=== PATIENT | male | born 1965 | race Hispanic/Latino ===

== ENCOUNTER 2020-11-29 07:48 | Emergency (ER) | payer OTHER ==
[2020-11-29 07:56] VITALS: BP 139/77
--- NOTE | 2020-11-29 08:31 | Emergency Department Report ---
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 Patient states he hurt his knee pop when he was putting on his bunker gear this morning. Patient states that he has been having some trouble with his knee but today the pain has gotten worse after the pop. Patient states is difficult to walk. He states he has been trying to wear knee brace. He has a past medical history of hypertension. He denies any direct blow or fall. MD Complaint: knee injury -: This morning Injury: Knee: Right (Putting on bunker gear heard knee pop) Type of Injury: unknown Place: work Severity scale (0 -10): 8 Improves With: rest Worsens With: weight bearing Associated Symptoms: snap/pop sensation - Related Data Previous Rx's Medication Instructions Recorded Last Taken Type Meloxicam [Mobic] 7.5 mg PO QDAY #30 tablet 11/29/20 Unknown Rx Allergies Allergy/AdvReac Type Severity Reaction Status Date / Time No Known Allergies Allergy Unverified 11/29/20 07:51 ED Review of Systems ROS: Stated complaint: RT KNEE PAIN Other details as noted in HPI Comment: All other systems reviewed and negative ED Past Medical Hx - Past Medical History Hx Hypertension: Yes - Social History Smoking Status: Never Smoker Substance Use Type: None - Medications Home Medications: Home Medications Medication Instructions Recorded Confirmed Last Taken Type Meloxicam [Mobic] 7.5 mg PO QDAY #30 tablet 11/29/20 Unknown Rx ED Physical Exam - General Limitations: No Limitations General appearance: alert, in no apparent distress - Head Head exam: Present: atraumatic, normocephalic - Eye Eye exam: Present: normal appearance - ENT ENT exam: Present: mucous membranes moist - Neck Neck exam: Present: normal inspection, full ROM - Respiratory Respiratory exam: Absent: accessory muscle use - Cardiovascular Cardiovascular Exam: Present: regular rate - Extremities Exam Extremities exam: Present: full ROM. Absent: calf tenderness - Expanded Lower Extremity Exam Right Knee exam: Present: full ROM, tenderness (Medial), full knee extension. Absent: swelling, abrasion, laceration, ecchymosis, deformity, erythema, effusion Lower Leg exam: Present: normal inspection, full ROM. Absent: tenderness, swelling Ankle exam: Present: normal inspection, full ROM. Absent: tenderness, swelling Foot/Toe exam: Present: normal inspection, swelling (trace medial). Absent: tenderness, dislocation, erythema Neuro vascular tendon exam: Present: no vascular compromise - Back Exam Back exam: Present: normal inspection - Neurological Exam Neurological exam: Present: alert, oriented X3 - Psychiatric Psychiatric exam: Present: normal affect, normal mood - Skin Skin exam: Present: warm, dry, intact, normal color. Absent: rash ED Course Vital Signs 11/29/20 07:54 Temperature 98.5 F Pulse Rate 84 Respiratory 18 Rate Blood Pressure 139/77 O2 Sat by Pulse 97 Oximetry ED Lower Extremity MDM - Radiology Data Radiology results: report reviewed [facility] [address] [place] [address] XRay Report Signed Patient: NESHA CLEMENT MR#: [id number] 8 : 1965 Acct:[id number] Age/Sex: 55 / M ADM Date: 11/29/20 Loc: ED Attending Dr: Ordering Physician: YAMIL ELLISON Date of Service: 11/29/20 Procedure(s): XR knee 1-2V RT Accession Number(s): [id number] cc: YAMIL ELLISON Fluoro Time In Minutes: RIGHT KNEE AP AND LATERAL VIEWS INDICATION: Knee pain hurt with popping sound. COMPARISON: No relevant prior imaging study available. FINDINGS: No acute, displaced fracture or dislocation is seen. There is mild tricompartmental joint space narrowing. No definite joint effusion is identified. IMPRESSION: 1. No acute findings. 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 Patient states he hurt his knee pop when he was putting on his bunker gear this morning. Patient states that he has been having some trouble with his knee but today the pain has gotten worse after the pop. Patient states is difficult to walk. He states he has been trying to wear knee brace. He has a past medical history of hypertension. He denies any direct blow or fall. X-ray has been ordered. Critical care attestation.: If time is entered above; I have spent that time in minutes in the direct care of this critically ill patient, excluding procedure time. ED Disposition Clinical Impression: Knee injury Disposition: DC-01 TO HOME OR SELFCARE Is pt being admited?: No Does the pt Need Aspirin: No Condition: Stable Instructions: Knee Sprain, Adult, [id number] Additional Instructions: X-ray of knee shows no acute abnormalities. As I discussed may need to follow- up with an orthopedic provider as you may need further studies such as MRI. I have listed an orthopedic provider below for your convenience. Prescriptions: Meloxicam [Mobic] 7.5 mg PO QDAY #30 tablet Referrals: LENARD LUONG MD [Primary Care Provider] - 3-5 Days PILAR MENDOZA MD [Staff Physician] - 3-5 Days [facility] [Provider Group] - 3-5 Days Forms: Work/School Release Form(ED)
[2020-11-29] MEDS ORDERED: IBUPROFEN 600 MG TAB PO ONE (08:39)
--- NOTE | 2020-11-29 09:23 | XRay Report ---
RIGHT KNEE AP AND LATERAL VIEWS INDICATION: Knee pain hurt with popping sound. COMPARISON: No relevant prior imaging study available. FINDINGS: No acute, displaced fracture or dislocation is seen. There is mild tricompartmental joint space narro wing. No definite joint effusion is identified. IMPRESSION: 1. No acute findings. Signer Name: Cristian Redd MD Signed: 11/29/2020 9:16 AM Workstation Name: [id number]
== END 2020-11-29 09:48 | disposition home or self-care (01) ==
LOC: ED 07:48
DX: S89.91XA Unspecified injury of right lower leg, initial encounter (principal); I10 Essential (primary) hypertension; Z79.899 Other long term (current) drug therapy; X58.XXXA Exposure to other specified factors, initial encounter; Y93.89 Activity, other specified; Y92.89 Other specified places as the place of occurrence of the external cause; Y99.8 Other external cause status
CPT/HCPCS: 99283